=== PATIENT | male | born 1955 | race Caucasian/White ===

== ENCOUNTER → 2022-12-22 | Outpatient (CLI) | payer MEDICARE ==
--- NOTE | 2022-12-23 18:26 | MR ---
EXAMINATION TYPE: MR Prostate wo/w con DATE OF EXAM: 12/22/2022 8:56 AM COMPARISON: Ultrasound 09/12/2011. CLINICAL INDICATION:Male, 67 years old with history of R97.20 ELEVATED PSA; TECHNIQUE: Multi-planar, multi-sequence imaging of the pelvis is performed prior to and following the uncomplicated administration of bolus intravenous gadolinium. CONTRAST: 9 Gad[facility]ist Interpretive Criteria: PI-RADS v2.1 SERUM PSA: 4.68 11/10/2022 4.59 02/20/2022 5.9 02/11/2022 4.4 11/09/2019 SURGICAL PATHOLOGY: No data available. FINDINGS: Prostatic dimensions: 5.8 x 3.5 x 5.0 cm. Ellipsoid Volume: 53.15 (PSA density=0.09 ng/mL/mL) CENTRAL GLAND (Central and Transition Zones/CZ+TZ): Lesion within the anterior right central gland the apex measuring 4 mm with high DWI and low ADC sign al with associated lower T2 signal. Median lobe hypertrophy with protrusion into the base of the blad cynthia. (PI-RADS 3) PERIPHERAL ZONE (PZ): No evidence of masslike abnormality, or localized perfusional hypervascularity, to further suggest a focus of clinically significant prostate cancer. (PI-RADS 2) SEMINAL VESICLES (SV): Symmetric and unremarkable. PERIPROSTATIC TISSUES: Unremarkable. LYMPH NODES: No enlarged pelvic lymph node. REMAINING PELVIS: Bladder wall is within normal limits given distention. No abnormal free or organized intrapelvic fluid collection. No pathologic bowel dilation or mural thickening. Small bilateral fat-containing inguinal hernias. OSSEOUS STRUCTURES: No suspicious osseous abnormality. IMPRESSION: 1. PI-RADS 3 lesion right anterior central gland apex measuring 4 mm. 2. Moderate BPH, estimated gland volume 53.15 mL. [facility], Rotation: , Reason: , Read date: 12/23/2022 6:23 PM, Study performed: 12/22/2022 8:56 AM, [id number], [id number], MR Prostate wo/w con
== END | disposition home or self-care (01) ==
LOC: RADMRIMAIN 08:09
PROVIDERS: ATTEND Family Medicine
DX: N40.0 Benign prostatic hyperplasia without lower urinary tract symptoms (principal); R97.20 Elevated prostate specific antigen [PSA]
CPT/HCPCS: 72197; A9585